=== PATIENT | female | born 1960 | race Caucasian/White ===

== ENCOUNTER 2023-05-11 11:09 | Outpatient (CLI) | payer BC | END 2023-05-11 11:10 | disposition home or self-care (01) | LOC: CSHMAMMO 11:09 | PROVIDERS: ATTEND Internal Medicine | DX: Z12.31 Encounter for screening mammogram for malignant neoplasm of breast (principal); Z80.3 Family history of malignant neoplasm of breast; Z98.82 Breast implant status | CPT/HCPCS: 77063; 77067 ==

== ENCOUNTER 2024-09-13 07:57 | Outpatient (CLI) | payer BC | END 2024-09-13 07:58 | disposition home or self-care (01) | LOC: CSHMAMMO 07:57 | PROVIDERS: ATTEND Internal Medicine | DX: Z12.31 Encounter for screening mammogram for malignant neoplasm of breast (principal); Z13.820 Encounter for screening for osteoporosis; Z78.0 Asymptomatic menopausal state; M85.851 Other specified disorders of bone density and structure, right thigh; M85.852 Other specified disorders of bone density and structure, left thigh; Z80.3 Family history of malignant neoplasm of breast; Z98.890 Other specified postprocedural states | CPT/HCPCS: 77063; 77067; 77080 ==